=== PATIENT | female | born 1990 | race Caucasian/White ===

== ENCOUNTER 2017-09-27 10:54 | Emergency (ER) | payer OTHER ==
[~2017-09-27] VITALS: Ht 157.5 cm; Wt 63.0 kg
[2017-09-27 11:02] VITALS: BP 124/75; PULSE 92; TEMP 36.7; O2SAT 98; Ht 157.5 cm; Wt 63.0 kg
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
[2017-09-27] MEDS ORDERED: IRON PO (11:36)
[2017-09-27] MEDS ORDERED: PRENTAB26 PO (11:36)
== END 2017-09-27 11:30 | disposition home or self-care (01) ==
LOC: C.EDB 10:56 → C.EDC 11:30
DX: Z04.1 Encounter for examination and observation following transport accident (principal); Z33.1 Pregnant state, incidental; Z3A.27 27 weeks gestation of pregnancy; M25.551 Pain in right hip

== ENCOUNTER 2017-09-27 11:44 | Outpatient (CLI) | payer OTHER ==
[~2017-09-27] VITALS: Ht 160 cm; Wt 66.0 kg
[~2017-09-27 11:44] MED LIST: IRON PO; PRENTAB26 PO
[2017-09-27] MEDS ORDERED: LACTATED RINGER'S 1000ML 1,000 ML IV ONE (12:07)
[2017-09-27] MEDS ORDERED: LACTATED RINGER'S 1000ML 1,000 ML IV SCH (12:07)
[2017-09-27] MEDS ORDERED: ACETAMINOPHEN 325 MG TAB PO PRN (12:15)
[2017-09-27] MEDS ORDERED: IV FLUIDS COMPLETED PRN (12:15)
[2017-09-27 12:23] VITALS: Ht 160 cm; Wt 66.0 kg
[2017-09-27 12:40] LABS: BASO % 0.1 %; BASO ABS # 0.01 K/uL (0-0.2); EOS % 0.3 %; EOS ABS # 0.03 K/uL (0-0.5); HEMATOCRIT 31.1 % (37-47); HEMOGLOBIN 10.5 g/dL (12.0-16.0); IG# 0.11 K/uL (0.00-0.02); LYMPH % 19.5 %; LYMPH ABS # 2.03 K/uL (1.2-3.4); MEAN CELL VOLUME 90.7 fL (80-100); MEAN CORPUSCULAR HEMOGLOBIN 30.6 pg (25-34); MEAN CORPUSCULAR HGB CONC 33.8 g/dl (32-36); MEAN PLATELET VOLUME 9.4 fL (7.4-10.4); MONO % 4.3 %; MONO ABS # 0.45 K/uL (0.11-0.59); NEUT % 74.7 %; NEUT ABS # 7.77 K/uL (1.4-6.5); PLATELET COUNT 199 K/uL (130-400); RED CELL DISTRIBUTION WIDTH CV 13.7 % (11.5-14.5); RED CELL DISTRIBUTION WIDTH SD 45.5 fL (36.4-46.3)
[2017-09-27 13:17] LABS: INR 0.9 (0.9-1.1); PTT PATIENT 27.3 SECONDS (21.0-31.0)
--- NOTE | 2017-09-27 13:23 | DIAGNOSTIC IMAGING REPORT ---
LIMITED (US) CLINICAL HISTORY: PLACENTA, PRATIMA Limited pelvic ultrasound TECHNIQUE: Ultrasound COMPARISON STUDY: None FINDINGS: Single, viable intrauterine . Estimated gestational age is 28 weeks 5 days. Cephalic presentation. Posterior placenta with no evidence for placenta previa. Amniotic fluid index 15.4 cm. IMPRESSION: 1. Posterior placenta with no evidence for placenta previa. 2. Amniotic fluid index 15.4 cm.. 3. Cephalic presentation of a single, viable intrauterine The above report was generated using voice recognition software. It may contain grammatical, syntax or spelling errors. Electronically signed by: Otoniel Cole M.D. 09/27/2017 1:21 PM Dictated Date/Time: 09/27/2017 1:20 PM
[2017-09-27] MEDS ORDERED: INFLUENZA VIRUS QUAD VACCINE 0.5 ML SYR IM. ONE (15:15)
[2017-09-27] MEDS ORDERED: INFLUENZA ADMINISTRATION CHARGE ONE (15:15)
--- NOTE | 2017-09-27 15:20 | Discharge Instructions ---
Discharge Instructions Date of Service Sep 27, 2017. Admission Reason for Admission: Prolonged Monitoring Discharge Discharge Diagnosis / Problem: Discharge Goals Goal(s): Continuing OB care Medications Continue Dispensed Medications: other Activity Recommendations Activity Limitations: as noted below ACTIVITY RECOMMENDATIONS: See Labor Sheet. SPECIAL CARE INSTRUCTIONS: Call Doctor if: * Regular contractions every 5 minutes or greater than 5 contractions in one hour. * Bleeding * Water breaks or is leaking * Decreased movement * Fever >100.4 degrees F * Pain not relieved by routine measures or pain medication ordered. FOLLOW UP VISIT: Return to Labor and Delivery on for /call for appointment time . Follow-up Visit with: When: . Current Hospital Diet Patient's current hospital diet: Discharge Diet Recommended Diet: Regular Diet Pending Studies Studies pending at discharge: no Medical Emergencies . Who to Call and When: Medical Emergencies: If at any time you feel your situation is an emergency, please call 911 immediately. . Non-Emergent Contact Non-Emergency issues call your: Specialist Call Non-Emergent contact if: temperature is above 100.5, your pain is not controlled . . "Provider Documentation" section prepared by Froylan Liz. . VTE Core Measure Inpt VTE Proph given/why not?: Treatment not indicated
== END 2017-09-27 15:43 | disposition home or self-care (01) ==
LOC: C.LD 11:44 → C.OPB 11:44
PROVIDERS: ATTEND Obstetrics & Gynecology
DX: Z34.83 Encounter for supervision of other normal pregnancy, third trimester (principal); Z3A.28 28 weeks gestation of pregnancy; V89.2XXA Person injured in unspecified motor-vehicle accident, traffic, initial encounter